=== PATIENT | female | born 1980 | race Caucasian/White ===

== ENCOUNTER 2023-03-02 16:19 | Emergency (ER) | payer OTHER ==
[2023-03-02] MEDS ORDERED: ACETAMINOPHEN 325 MG TABLET (FP) PO ONE (16:39)
[2023-03-02 16:46] VITALS: BP 127/71; PULSE 70; RESP 20; TEMP 98.2; BMI 20.7
== END 2023-03-02 18:33 | disposition home or self-care (01) ==
LOC: FER 16:19
DX: M79.645 Pain in left finger(s) (principal); R20.2 Paresthesia of skin; R22.32 Localized swelling, mass and lump, left upper limb
CPT/HCPCS: 73140-TC-LT-FY; 99283-25